=== PATIENT | female | born 1940 | race Hispanic/Latino ===

== ENCOUNTER 2018-09-04 23:57 | Inpatient (IN) | payer MEDICARE, MEDICAID ==
[2018-09-05] MEDS ORDERED: Piperacillin/Tazobactam 4.5 GM VIAL ONE (02:33)
[2018-09-05] MEDS ORDERED: Digoxin 0.5 MG/2 ML AMP ONE (03:45)
[2018-09-05] MEDS ORDERED: Ondansetron ODT 4 MG TAB SL PRN (04:30)
[2018-09-05] MEDS ORDERED: Sodium Chloride 0.9% 1,000 ML IV SCH (04:30)
[2018-09-05] MEDS ORDERED: Ondansetron PF 4 MG/2 ML Vial IVP PRN (04:30)
[2018-09-05] MEDS ORDERED: Acetaminophen 325 MG TAB PO PRN (04:30)
[2018-09-05 04:36] VITALS: BMI 34.0
[2018-09-05] MEDS ORDERED: Diltiazem HCl 125 MG, Admixture Fee 1 EACH in Sodium Chloride 0.9% 100 ML IVPB SCH ×2 (04:45→06:45)
[2018-09-05] MEDS: Sodium Chloride 0.9% 1,000 ML IV SCH ×3 (05:22→22:59)
[2018-09-05] MEDS ORDERED: HYDROcodone/Acetaminophen 5/325 mg Tablet PO PRN (09:29)
[2018-09-05] MEDS: Azithromycin 500 MG in Sodium Chloride 0.9% 250 ML 250 ML IVPB SCH (10:07)
--- NOTE | 2018-09-05 10:13 | RAD ---
2 views of chest: 09/05/2018 COMPARISON: 10/26/2017 HISTORY: Cough, assess for pneumonia FINDINGS: There is atherosclerotic calcification of the aortic arch. Mild diffuse increased linear in terstitial density noted, stable. New nonspecific small bilateral pleural effusions are seen. No focal consolidation or alveolar edema. Mild increased linear density in the medial left base may signify scar, volume loss, or mild infiltr ate. IMPRESSION: Small new bilateral pleural effusions, which could be related to edema. Mild increased de nsity is seen in the medial left base with no focal consolidation or alveolar edema seen.
[2018-09-05] MEDS: cefTRIAXone\\ROCEPHIN 1 GM in Sodium Chloride 0.9% 100 ML IVPB SCH (11:09)
--- NOTE | 2018-09-05 15:54 | HP ---
PRIMARY CARE PHYSICIAN: Unknown. CHIEF COMPLAINT: Cough and fever. HISTORY OF PRESENT ILLNESS: The patient is a 78-year-old female with history of hypertension, arthritis, who presented to the ER with fever and cough. She has actually been coughing for about a month and she describes it as nonproductive and not worsening. She developed a fever overnight and it went up to 103. She also had diarrhea. She said she had diarrhea multiple times overnight, which has now resolved. The diarrhea was nonbloody. She is not having any nausea, vomiting. No dysuria. She had a chest x-ray in the ER, that did not show any acute infiltrate. Due to her clinical symptom, she was diagnosed with pneumonia and given vancomycin and Zosyn. After presentation to the ER, she ultimately ended up going into AFib with RVR, which is new to her. She was started on IV diltiazem drip and she is now converted sinus rhythm. I saw her in the telemetry unit. The patient is currently feeling well. Her fever has resolved and she is not having any shortness of breath. REVIEW OF SYSTEMS: All systems reviewed and pertinent positives and negatives as above. PAST MEDICAL HISTORY: 1. Hypertension. 2. Arthritis. ALLERGIES: NONE. HOME MEDICATIONS: 1. Lisinopril/hydrochlorothiazide 10/12.5. 2. Methotrexate. 3. Azithromycin, details unclear. FAMILY HISTORY: Parents of lung disease. SOCIAL HISTORY: No tobacco or alcohol. She lives with nephew. PHYSICAL EXAMINATION: VITAL SIGNS: Afebrile, blood pressure 92/52, pulse , respiratory rate 18, and oxygen saturation 98% on nasal cannula. GENERAL: No apparent distress. Alert and oriented x3. HEENT: Pupils are equal, round, and reactive to light. Extraocular movements are intact. Sclerae are anicteric. Oral mucosa clear without lesion. Moderate dentition. NECK: Supple. No lymphadenopathy. No JVD. Thyroid is not enlarged. Trachea is midline. CARDIOVASCULAR: Regular rate and rhythm. Normal S1 and S2. No murmurs. No rubs or gallops. CHEST: Clear to auscultation bilaterally with good effort. No distress. No rhonchi or wheezing. ABDOMEN: Soft, nontender, and nondistended. Normoactive bowel sounds. No hepatosplenomegaly. EXTREMITIES: No cyanosis, clubbing, or edema. Normal range of motion. SKIN: Warm, dry, and intact. No lesions or rashes. NEURO: Cranial nerves and DTRs are intact. Strength is 5/5. PSYCH: Appropriate mood and affect. LABORATORY DATA: Sodium 139, potassium 3.9, chloride 106, bicarbonate 22, BUN is 16, creatinine of 0.88, and glucose of 133. White count of 12.1, hemoglobin of 11.8, and platelet count 240. IMAGING DATA: Chest x-ray reviewed by me shows no acute infiltrate. It is an overexposed film. ASSESSMENT AND PLAN: 1. Febrile illness. She has a cough but that has been going on for a month, but she also has new development of diarrhea. Her febrile illness could be related to underlying pneumonia, however, her initial chest x-ray did not show clear evidence of that. I will repeat the chest x-ray and also order a procalcitonin level to try to confirm the diagnosis. Also if she develops more diarrhea, we will send stool for culture. I will continue the patient on azithromycin and Rocephin now for the presumed diagnosis of pneumonia, pending the confirmatory tests as above. 2. Atrial fibrillation with rapid ventricular response. This is a new diagnosis and she is already converted to sinus rhythm. I will order an echocardiogram and keep her on telemetry. She will need to be at least on aspirin, but depending on her course, she may need further stroke prevention, likely the cause of her atrial fibrillation was the underlying infection. 3. Hypertension. Continue her home medications. With hold parameters, her blood pressure was little on the lower side this morning, but that was when she was on the diltiazem. 4. Deep venous thrombosis prophylaxis with Lovenox. 5. The patient is a full code. Job ID: [id number]
[2018-09-05] MEDS ORDERED: Benzonatate 100 MG CAP PO PRN (22:01)
[2018-09-05] MEDS: Diabetic Tussin 200 MG/10 ML UDCUP PO PRN (22:59)
[2018-09-06] MEDS: Sodium Chloride 0.9% 1,000 ML IV SCH ×2 (01:19→15:05)
[2018-09-06 05:37] LABS: #Lymphocytes 1.8 thou/uL (1.20-3.40); #Monocytes 0.6 thou/uL (0.11-0.59); #Neutrophils 6.7 thou/uL (1.40-6.50); %Basophils 0.2 % (0.0-1.0); %Eosinophils 0.2 % (0.0-10.0); %Lymphocytes 19.4 % (21.0-51.0); %Monocytes 6.3 % (0.0-10.0); %Neutrophils 73.9 % (42.0-75.0); Hemoglobin 9.2 g/dL (12.0-16.0); Mean Corpuscular Hemoglobin 30.2 pg (27.0-31.0); Mean Corpuscular Volume 94.6 fL (78.0-98.0); Platelet Count 171 thou/uL (130-400); RBC Distribution Width 13.9 % (11.5-14.5); Red Blood Cell (RBC) Count 3.04 mill/uL (4.20-5.40)
[2018-09-06 05:46] LABS: Anion Gap 9 mmol/L (10-20); BUN (Urea Nitrogen) 16 mg/dL (9.8-20.1); Calc. Creatinine Clearance 87 mL/min (70-130); Calcium 7.3 mg/dL (7.8-10.44); Carbon Dioxide 22 mmol/L (23-31); Chloride 115 mmol/L (98-107); Estimated GFR-MDRD Greater than 90; Glucose 89 mg/dL (83-110); Potassium 3.6 mmol/L (3.5-5.1); Sodium 142 mmol/L (136-145)
[2018-09-06] MEDS: Azithromycin 500 MG in Sodium Chloride 0.9% 250 ML 250 ML IVPB SCH (10:13)
[2018-09-06] MEDS: Aspirin 81 mg Enteric Coated Tablet PO SCH (10:13)
[2018-09-06] MEDS: Diabetic Tussin 200 MG/10 ML UDCUP PO PRN (10:13)
[2018-09-06] MEDS: Enoxaparin Sodium 40 MG/0.4 ML SYRINGE SC SCH (10:13)
--- NOTE | 2018-09-06 10:27 | PDOC.PN ---
- Subjective Encounter Start Date: 09/06/18 Encounter Start Time: 10:26 Patient seen and examined, states she feels better but not fully back to normal , daugher at bedside, all questions answered. - Objective Resuscitation Status - Order Detail: 09/05/18 09:29 Resuscitation Status Routine Resuscitation Status: FULL: Full Resuscitation Vital Signs & Weight: Vital Signs (12 hours) Temp Pulse Resp BP BP Pulse Ox 09/06/18 08:00 98 F 75 18 139/65 98 09/06/18 04:10 98.5 F 70 18 98/52 L 100 09/06/18 00:00 74 130/60 Weight Weight 162 lb 12.8 oz I&O: 09/05/18 09/06/18 09/07/18 06:59 06:59 06:59 Intake Total 3465 Balance 3465 Result Diagrams: 09/06/18 05:02 09/06/18 05:02 Phys Exam - Physical Examination Constitutional: NAD HEENT: PERRLA, moist MMs, sclera anicteric Neck: no nodes, no JVD, supple Respiratory: no wheezing, no rales, no rhonchi Cardiovascular: RRR, no significant murmur, no rub Gastrointestinal: soft, non-tender, no distention Musculoskeletal: pulses present, edema present Dx/Plan (1) Pneumonia Code(s): J18.9 - PNEUMONIA, UNSPECIFIED ORGANISM Status: Acute (2) Fever Code(s): R50.9 - FEVER, UNSPECIFIED Status: Acute (3) Hypertension Code(s): I10 - ESSENTIAL (PRIMARY) HYPERTENSION Status: Acute (4) Paroxysmal A-fib Code(s): I48.0 - PAROXYSMAL ATRIAL FIBRILLATION Status: Acute - Plan * cont abx for now, having good improvement subjectively * monitor labs for now * will resume home meds as appropriate * case and plan d/w patient and family at length, in sw[place], they understood an agreed with this plan.
[2018-09-06] MEDS ORDERED: Benzonatate 100 MG CAP PO SCH (10:45)
[2018-09-06] MEDS: cefTRIAXone\\ROCEPHIN 1 GM in Sodium Chloride 0.9% 100 ML IVPB SCH (12:40)
[2018-09-06] MEDS ORDERED: Lisinopril/Hydrochlorothiazide 10 mg/12.5 mg Tablet PO SCH (13:30)
[2018-09-06] MEDS: Lisinopril/Hydrochlorothiazide 10 mg/12.5 mg Tablet PO SCH (15:50)
[2018-09-06] MEDS: Benzonatate 100 MG CAP PO SCH ×2 (17:43→21:01)
[2018-09-07 05:21] LABS: #Eosinphils 0.1 thou/uL (0.0-0.7); #Lymphocytes 1.6 thou/uL (1.20-3.40); #Monocytes 0.5 thou/uL (0.11-0.59); #Neutrophils 3.6 thou/uL (1.40-6.50); %Basophils 0.4 % (0.0-1.0); %Lymphocytes 27.7 % (21.0-51.0); %Monocytes 8.7 % (0.0-10.0); %Neutrophils 61.1 % (42.0-75.0); Hemoglobin 9.8 g/dL (12.0-16.0); Mean Corpuscular HGB CONC 32.2 g/dL (32.0-36.0); Mean Corpuscular Hemoglobin 30.4 pg (27.0-31.0); Mean Corpuscular Volume 94.4 fL (78.0-98.0); Platelet Count 190 thou/uL (130-400); RBC Distribution Width 13.8 % (11.5-14.5); Red Blood Cell (RBC) Count 3.21 mill/uL (4.20-5.40); White Blood Cell (WBC) Count 5.8 thou/uL (4.8-10.8)
[2018-09-07 05:39] LABS: Anion Gap 9 mmol/L (10-20); BUN (Urea Nitrogen) 10 mg/dL (9.8-20.1); Calc. Creatinine Clearance 84 mL/min (70-130); Calcium 7.8 mg/dL (7.8-10.44); Carbon Dioxide 22 mmol/L (23-31); Chloride 115 mmol/L (98-107); Estimated GFR-MDRD 88; Glucose 81 mg/dL (83-110); Potassium 3.5 mmol/L (3.5-5.1); Sodium 142 mmol/L (136-145)
[2018-09-07] MEDS: Sodium Chloride 0.9% 1,000 ML IV SCH (05:51)
[2018-09-07] MEDS: Aspirin 81 mg Enteric Coated Tablet PO SCH (09:24)
[2018-09-07] MEDS: Benzonatate 100 MG CAP PO SCH ×2 (09:24→15:26)
[2018-09-07] MEDS: Enoxaparin Sodium 40 MG/0.4 ML SYRINGE SC SCH (09:24)
[2018-09-07] MEDS: Lisinopril/Hydrochlorothiazide 10 mg/12.5 mg Tablet PO SCH (09:25)
[2018-09-07] MEDS: Azithromycin 500 MG in Sodium Chloride 0.9% 250 ML 250 ML IVPB SCH (09:33)
[2018-09-07] MEDS: cefTRIAXone\\ROCEPHIN 1 GM in Sodium Chloride 0.9% 100 ML IVPB SCH (11:44)
--- NOTE | 2018-09-07 11:47 | PDOC.EVN ---
Event Note - Event Note Event Note: DC SUMMARY #[id number]
[2018-09-07 12:46] VITALS: TEMP 98
[2018-09-07 15:36] VITALS: BP 137/65
--- NOTE | 2018-09-08 03:30 | DIS ---
DATE OF ADMISSION: 09/05/2018 DATE OF DISCHARGE: 09/07/2018 ADMITTING DIAGNOSES: 1. Cough. 2. Fever. 3. Pneumonia. 4. Diarrhea. 5. Osteoarthritis. 6. Hypertension. DISCHARGE DIAGNOSES: 1. Pneumonia, stable. 2. Diarrhea secondary to Clostridium difficile. 3. Cough, resolved. 4. Fever, resolved. 5. Chills, resolved. 6. Hypertension, stable. 7. Osteoarthritis, stable. HOSPITAL COURSE: This is a 78-year-old female, who was admitted to the Internal Medicine team for diarrhea as well as fever and cough. The patient had a chest x-ray done at point in time of admission in the ER, which showed findings of pleural effusion concerning for infiltrates as well as possible pneumonia. The patient was also having significant diarrhea. C. diff studies were done on the stool and were positive for C. diff antigen. The patient was started on antibiotics, had improvement after 48 hours of admission on IV antibiotics and starting diet. Denied any nausea, vomiting, fevers, chills, shortness of breath. She did have some diarrhea movements. However, patient stated the stools were forming and improving. Blood pressure at the time of discharge was 149/70 and stable. Vital signs were stable. The patient advised to follow up with her PCP and ID and renal doctor within 1 week for further management and care. The patient was given antibiotics, Levaquin, Flagyl to be taken for 10 days, as well as antitussive medication. guaifenesin. Case and plan discussed with patient and daughter at length in [place]. They understood and agreed with this plan. DISPOSITION: Home. FOLLOWUP: Follow up with PCP and Renal within one week. MEDICATIONS: See MAR. ACTIVITY: As tolerated with assistance as needed. DIET: Low-fat, low-calorie, high-fiber diet. CONDITION: Stable. PROGNOSIS: Good. Case and plan again discussed with patient and daughter at length in [place]. They understood and agreed with this plan. Job ID: [id number]
== END 2018-09-07 17:10 | disposition home or self-care (01) | DRG 371 ==
LOC: ERS 23:57 → 2NO 09-05 02:00
PROVIDERS: ADMIT Family Medicine; ATTEND Family Medicine
DX: A04.72 Enterocolitis due to Clostridium difficile, not specified as recurrent (principal); J18.9 Pneumonia, unspecified organism; I10 Essential (primary) hypertension; M19.90 Unspecified osteoarthritis, unspecified site; I48.0 Paroxysmal atrial fibrillation; Z79.899 Other long term (current) drug therapy
CPT/HCPCS: 36415; 71046; 80048; 84145; 85025; 87040; 87324; 87449; 87493; 93306; 96365; 96368; 96375; J0456; J0696; J1160; J1650; J2543; J3370; J3490; J7050

== ENCOUNTER 2023-03-28 09:16 | Outpatient (CLI) | payer MEDICARE, MEDICAID | END 2023-03-28 09:17 | disposition home or self-care (01) | LOC: RAD 09:16 | PROVIDERS: ATTEND Internal Medicine Critical Care Medicine | DX: R06.00 Dyspnea, unspecified (principal) | CPT/HCPCS: 71046 ==